=== PATIENT | female | born 1965 | race Caucasian/White ===

== ENCOUNTER 2024-01-24 20:36 | Emergency (ER) | payer OTHER, SELFPAY ==
[2024-01-24 20:38] VITALS: BP 162/100
--- NOTE | 2024-01-24 22:04 | ED.SKININJ ---
HPI-Injury
<ALEJANDRO Ivory - Last Filed: 01/24/24 23:51>
General
Chief Complaint: Skin Problem
Source: patient
Exam Limitations: none
Time Seen by Provider: 01/24/24 21:57
Nursing documentation reviewed up to this point in time: agreed with
Travel History
Have you had any contact with someone who has COVID-19?: No
Do you have any symptoms of coronavirus? Fever > 100 degrees, chills, cough, shortness of breath, sore throat, loss of taste or smell, muscle aches, or headache?: No
History of Present Illness-Injury
Is this injury a work related problem?: No
Initial Injury comments:
58 y/o F presents to ED after injury to L index finger. Patient reports around 8:15pm patient was cleaning a hand held spice blender tool when she accidently turned it on and cut her finger. Patient immediately removed finger after injury. She reports
bleeding at time of injury but has since been controlled by nurses in ED. Patient states she is able to move her finger and reports pain is moderate. She does report decreased sensation to finger. Patient reports she received her tetanus shot last
year. Patient is right handed.
Review of Systems
<ALEJANDRO Ivory - Last Filed: 01/24/24 23:51>
Review of Systems
Allergies reviewed?: Yes
All Other Systems: ROS reviewed and negative except as documented in HPI and ROS
Constitutional: Reports no symptoms
EENT: Reports no symptoms
Respiratory: Reports no symptoms
Cardiac: Reports no symptoms
ABD/GI: Reports no symptoms
: Reports no symptoms
Musculoskeletal: Reports no symptoms
Skin: Reports other (laceration )
Neurological: Reports no symptoms
Endocrine: Reports no symptoms
Hematologic/Lymphatic: Reports no symptoms
Psychiatric: Reports no symptoms
Skin Exam
<ALEJANDRO Ivory - Last Filed: 01/24/24 23:51>
Laceration
Right Second Finger(s):
Length in cm: 1.5
Orientation: horizontal
Type of Laceration: simple
Any active bleeding?: no active bleeding
Distal skin color and temperature: normal-warm & good color
Normal distal neurovascular exam: Yes
Range of motion: full
Right Distal Second Finger(s):
Length in cm: 1
Orientation: horizontal
Type of Laceration: simple
Any active bleeding?: no active bleeding
Distal skin color and temperature: normal-warm & good color
Normal distal neurovascular exam: Yes
Range of motion: full
Phy Exam
<ALEJANDRO Ivory - Last Filed: 01/24/24 23:51>
General Physical Exam
General Presentation: well appearing and no apparent distress
General age: appears stated age
General Skin: warm and dry
General Habitus: normal
General Mental: alert
General Hydration: appears well hydrated
Cardiovascular Exam
Cardiovascular Exam: regular rate/rhythm, no edema, no gallop, no murmur and normal peripheral pulses
Pulmonary Exam
Pulmonary Exam: no respiratory distress
Neurological Exam
Neurological Exam: alert and oriented x3
Musculoskeletal Exam
Musculoskeletal Exam: full ROM and neuro vasc intact
Skin Exam
Skin Exam: normal color, warm/dry and laceration (3cm and 2.5 cm laceration on distal 2nd finger)
Psychiatric Exam
Psychiatric Exam: normal mood/affect
Course
<ALEJANDRO Ivory - Last Filed: 01/24/24 23:51>
Orders/Labs/Results
Orders:
Orders
01/24/24 22:18
Finger(s)/Thumb 2 View Lt [CR Finger(s)/thumb Min 2 Vw Lt] Urgent
Comment:
Reason For Exam: finger laceration and pain, rule out fracture
01/24/24 22:19
Lidocaine/Epinephrine/Tetracai [Let Topical Anesthetic Gel] 3 ml .ROUTE .STK-MED ONE
01/24/24 22:44
CeFAZolin SODIUM [Ancef] 1,000 mg IM NOW STA
Ketorolac [Toradol] 60 mg IM NOW STA
Lidocaine/Epinephrine/Tetracai [Let Topical Anesthetic Gel] 3 ml TOPICAL NOW STA
01/24/24 23:10
Sterile Water [Sterile Water For Injection] 10 ml .ROUTE .STK-MED ONE
Vital Signs
Initial and Last Documented VS:
Initial Vital Signs
Temp Pulse Resp BP Pulse Ox
98.0 F 98 20 162/100 97
01/24/24 20:38 01/24/24 20:38 01/24/24 20:38 01/24/24 20:38 01/24/24 20:38
Last Documented Vital Signs
Temp Pulse Resp BP Pulse Ox
98.0 F 98 20 162/100 97
01/24/24 20:38 01/24/24 20:38 01/24/24 20:38 01/24/24 20:38 01/24/24 20:38
<Shaye Stevens, DO - Last Filed: 01/24/24 23:55>
Orders/Labs/Results
Orders:
Orders
01/24/24 22:18
Finger(s)/Thumb 2 View Lt [CR Finger(s)/thumb Min 2 Vw Lt] Urgent
Comment:
Reason For Exam: finger laceration and pain, rule out fracture
01/24/24 22:19
Lidocaine/Epinephrine/Tetracai [Let Topical Anesthetic Gel] 3 ml .ROUTE .STK-MED ONE
01/24/24 22:44
CeFAZolin SODIUM [Ancef] 1,000 mg IM NOW STA
Ketorolac [Toradol] 60 mg IM NOW STA
Lidocaine/Epinephrine/Tetracai [Let Topical Anesthetic Gel] 3 ml TOPICAL NOW STA
01/24/24 23:10
Sterile Water [Sterile Water For Injection] 10 ml .ROUTE .STK-MED ONE
Vital Signs
Initial and Last Documented VS:
Initial Vital Signs
Temp Pulse Resp BP Pulse Ox
98.0 F 98 20 162/100 97
01/24/24 20:38 01/24/24 20:38 01/24/24 20:38 01/24/24 20:38 01/24/24 20:38
Last Documented Vital Signs
Temp Pulse Resp BP Pulse Ox
98.0 F 98 20 162/100 97
01/24/24 20:38 01/24/24 20:38 01/24/24 20:38 01/24/24 20:38 01/24/24 20:38
Procedures
<ALEJANDRO Ivory - Last Filed: 01/24/24 23:51>
Laceration Closure
Left Distal Second Finger(s):
Status of Wound: clean
Size of Wound in cm: 1
Description of Wound Edges: sharp
Preparation: cleaned with saline
Anesthesia: 1% Lidocaine with epi
Revision/Debridement: irrigate-direct pressure
Wound exploration: extensive cleaning of contaminated wound
Type of Closure: single layer closure
Skin Closure Material: 5-0 prolene
Number of sutures: 3
Left distal second finger proximal to first laceration:
Status of Wound: clean
Size of Wound in cm: 1.5
Description of Wound Edges: sharp
Preparation: cleaned with saline
Anesthesia: 1% Lidocaine with epi
Revision/Debridement: irrigate-direct pressure
Wound exploration: extensive cleaning of contaminated wound
Type of Closure: single layer closure
Skin Closure Material: 5-0 prolene
Number of sutures: 9
<ALEJANDRO Ivory - Last Filed: 01/24/24 23:51>
MDM/Problems Addressed
Differential Diagnosis Includes:
Laceration
<Shaye Stevens DO - Last Filed: 01/24/24 23:55>
*Radiology
Radiology exam reviewed: preliminary read by ED provider (Minute avulsion/divot defect of anterior mid aspect of the distal phalanx of left index digit.)
*Pulse Oximetry
Patient hypoxic: no
*Critical Care Note
Total Time (30-74mins, 75-104mins- exclusive of procedures): Not Applicable
ED Attending Note
<ALEJANDRO Ivory - Last Filed: 01/24/24 23:51>
-
Portions of this chart may have been created with voice recognition software.� Occasional wrong word or��sound alike� substitutions may have occurred due to the inherent limitations of voice recognition software.
<Shaye Stevens DO - Last Filed: 01/24/24 23:55>
ED Attending Note
Patient seen and examined by attending physician: Yes
I performed the substantive portion of visit, reviewed & personally made and approve the management plan that is documented in note by myself or BETHEL.: Yes
I performed a history and physical exam of patient and discussed management with resident, I reviewed resident's note and agree with documented findings and plan of care.: Yes
ED Attending Note:
This is a 58-year-old, [id number] woman with no significant past medical history other than hyperlipidemia, GERD who states this evening while she was cleaning a hand held spice blender that remained locked in. She inadvertently pushed on button
while cleaning and proceeded to sustain macerated type lacerations to her distal left index digit. She admits to mild local pain. Mild to moderate bleeding initially which promptly subsided with local pressure.
Up-to-date with Tdap having received this 2021.
No history of immune compromise, takes no anticoagulants. No history of peripheral vascular disease.
Her only daily medications are rosuvastatin, omeprazole.
PHYSICAL EXAMINATION:
General: 58-year-old woman appears her stated age, bright and alert, pleasant, appears in no acute distress. Easily communicative. Accompanied by her .
HEENT: Normocephalic, atraumatic. Oral mucosa is moist.
LUNGS: Respirations are easy and nonlabored. No cough appreciated.
Neuro: alert and oriented x 3. no focal neurological deficits. Gait is hudson and steady.
Psychiatric: well kept. interactive and cooperative
Musculoskeletal: [Left index digit: The distal anterior aspect of the digit has a 1.5 cm macerated horizontal laceration that abuts the radial aspect of the nail but does not extend nor involve the nail nor the nailbed. This
laceration is deep subcutaneous depth. No active bleeding. Just distal to this laceration is an additional laceration approximately 1 cm that is deep dermal in depth. No active bleeding. There is mild ecchymosis of skin surrounding these
lacerations and very minimal local soft tissue swelling. Mild to moderate local tenderness to palpation. Distal sensation at fingertips intact. Rapid capillary refill of distal digit. Full range of motion, strength intact.
Lacerated laceration of distal digit subcutaneous in depth and concern for potential tuft fracture, concern for open fracture thus will check x-ray.
Will apply LET for initial/topical anesthesia and plan for copious normal saline irrigation.
Laceration will require suture repair.
01/24/2024 2352 PM
X-ray shows a minute avulsion/divot defect of anterior mid aspect distal phalanx. There is no associated fracture but due to this open wound and bony defect this is considered an open fracture thus wound has been copiously irrigated with normal
saline solution and patient has been given an IM dose of Ancef and will prescribe 1 week course of Keflex.
Suture repair by student and myself.
Recommend Tylenol versus ibuprofen as needed for pain. Patient has tramadol available to her for moderate pain as well.
Routine wound care instructions provided.
Follow-up with PCP in 7 to 10 days for suture removal.
Return precautions discussed including signs and symptoms of wound infection.
Discharge Plan
Departure
Patient Disposition: Home (Routine Discharge)
Date of Disposition: 01/24/24
Time of Disposition: 23:47
Patient with high blood pressure during this ER visit?: No
Condition: Good
Discharge Problem:
complex laceration of left index digit, Open fracture of tuft of distal phalanx of finger
Instructions: Wound Care (DC), Laceration Repair With Stitches (DC)
Prescriptions:
New
cephalexin 500 mg capsule
1,000 mg PO BID 7 Days Qty: 28 0RF
Referrals:
Jenna Bautista MD [Family Provider] - Follow up in 10 days
Interventions
Interventions:
*Risk Screen - Suicide Last Done: 01/24/24 20:38
*General Assessment Last Done: 01/24/24 20:38
[2024-01-25] MEDS: LET TOPICAL ANESTHETIC GEL 3 ML TOPICAL ×4 (00:02)
[2024-01-25] MEDS: ANCEF 1000 MG IM ×4 (00:21)
[2024-01-25] MEDS: TORADOL 60 MG IM ×4 (00:22)
[2024-01-25 00:38] VITALS: BP 130/85
[2024-01-25 00:40] VITALS: BP 130/85
== END 2024-01-25 00:42 | disposition home or self-care (01) ==
LOC: EMR 20:36
PROVIDERS: EMERGENCY PHYSICIAN Emergency Medicine; FAMILY PHYSICIAN Family Medicine
DX: S62.661B Nondisplaced fracture of distal phalanx of left index finger, initial encounter for open fracture (principal); W26.8XXA Contact with other sharp object(s), not elsewhere classified, initial encounter
CPT/HCPCS: 99284; 13131; 96372 ×2; 73140